=== PATIENT | male | born 1945 | race Caucasian/White ===

== ENCOUNTER 2021-05-14 10:37 | Inpatient (IN) | payer MEDICARE ==
[~2021-05-14] VITALS: Ht 172.7 cm; Wt 72.6 kg
[~2021-05-14 10:37] MED LIST: AZITHROMYCIN250 MG PO; DEXAMETHASONE4 MG PO
[2021-05-14 11:59] LABS: HEMOGLOBIN 17.1 gm/dl (14.0-17.5); RED BLOOD COUNT 5.59 M/UL (4.20-5.50); WHITE BLOOD COUNT 14.6 K/UL (4.5-11.0)
[2021-05-14 12:36] LABS: BUN/CREATININE RATIO 25 (0-10)
[2021-05-14] MEDS ORDERED: ATORVASTATIN CA80 MG PO (14:05)
[2021-05-14] MEDS ORDERED: LEVOTHYROXINE125 MCG PO (14:05)
[2021-05-14] MEDS ORDERED: METOPROLOL TART25 MG PO (14:05)
[2021-05-14] MEDS ORDERED: OMEPRAZOLE20 MG PO (14:06)
[2021-05-14] MEDS ORDERED: ASPIRIN EC81 MG PO (14:06)
[2021-05-15 08:55] LABS: HEMOGLOBIN 16.7 gm/dl (14.0-17.5); RED BLOOD COUNT 5.72 M/UL (4.20-5.50); WHITE BLOOD COUNT 10.4 K/UL (4.5-11.0)
[2021-05-15 09:11] LABS: BUN/CREATININE RATIO 21 (0-10)
[2021-05-15] MEDS ORDERED: IPRAT-ALBUT 0.5-3 ML NEB (16:38)
[2021-05-15] MEDS ORDERED: BUDESONIDE0.5 MG/2 M NEB (16:38)
[2021-05-15] MEDS ORDERED: DECADRON6 MG PO (16:38)
[2021-05-15] MEDS ORDERED: OMNICEF 300 MG300 MG PO (16:38)
[2021-05-15] MEDS ORDERED: DOXYCYCLINE HY100 M2 PO (16:38)
== END 2021-05-15 18:14 | disposition left against medical advice (07) | DRG 177 ==
LOC: ER1 10:37 → CDU 13:08 → MED SURG 4 17:34
PROVIDERS: Physician Assistant; ADMIT Internal Medicine
PROC: 3E0333Z Introduction of Anti-inflammatory into Peripheral Vein, Percutaneous Approach (ICD-10-PCS; principal; 2021-05-14)
PROC: XW033E5 Introduction of Remdesivir Anti-infective into Peripheral Vein, Percutaneous Approach, New Technology Group 5 (ICD-10-PCS; 2021-05-14)
PROC: 8E0ZXY6 Isolation (ICD-10-PCS; 2021-05-14)
PROC: B24BZZ4 Ultrasonography of Heart with Aorta, Transesophageal (ICD-10-PCS; 2021-05-15)
DX: U07.1 COVID-19 (principal); J12.82 Pneumonia due to coronavirus disease 2019; J96.01 Acute respiratory failure with hypoxia; J15.9 Unspecified bacterial pneumonia; M62.82 Rhabdomyolysis; E87.1 Hypo-osmolality and hyponatremia; H91.90 Unspecified hearing loss, unspecified ear; K21.9 Gastro-esophageal reflux disease without esophagitis; E03.9 Hypothyroidism, unspecified; I25.10 Atherosclerotic heart disease of native coronary artery without angina pectoris; E78.5 Hyperlipidemia, unspecified; E80.6 Other disorders of bilirubin metabolism; F17.220 Nicotine dependence, chewing tobacco, uncomplicated; I10 Essential (primary) hypertension; I07.1 Rheumatic tricuspid insufficiency; I25.2 Old myocardial infarction; Z90.49 Acquired absence of other specified parts of digestive tract; Z82.49 Family history of ischemic heart disease and other diseases of the circulatory system
CPT/HCPCS: ECHO; 36415; 36600; 71045; 80053; 82550; 82553; 82803; 83605; 83874; 84484; 85025; 85027; 85379; 86140; 87040; 93005; 93306; 94640; 94664; 94760; 99285; J0696; J1100; J1650; J7030; J7050; U0002